=== PATIENT | female | born 1960 | race Caucasian/White ===

== ENCOUNTER 2023-06-23 12:32 | Emergency (ER) | payer MEDICARE, SELFPAY ==
[2023-06-23 12:38] VITALS: BP 145/90; PULSE 103; RESP 16; TEMP 36.6; O2SAT 99; BMI 21.8
[2023-06-23 12:58] LABS: Basophils Percent Auto 0.3 % (0.2-2.0); Eosinophils Percent Auto 0.4 % (0.9-7.0); Hemoglobin 16.8 g/dL (12.0-16.0); Immature Granulocytes Abs Auto 0.04 10^3/uL (0.00-0.03); Immature Granulocytes Pct Auto 0.4 % (0.0-0.5); Lymphocytes Absolute Auto 2.2 10^3/uL (1.2-3.8); Lymphocytes Percent Auto 22.1 % (20.5-60.0); Mean Corpuscular HGB Conc 34.3 g/dL (29.9-35.2); Mean Corpuscular Volume 78.7 fL (81.0-99.0); Mean Platelet Volume 10.9 fL (9.5-13.5); Monocytes Absolute Auto 0.9 10^3/uL (0.3-0.8); Monocytes Percent Auto 9.4 % (1.7-12.0); Neutrophils Absolute Auto 6.7 10^3/uL (1.4-6.5); Neutrophils Percent Auto 67.4 % (43.0-75.0); Platelet Count 386 10^3/uL (150-450); Red Blood Count 6.23 10^6/uL (4.20-5.40); Red Cell Distribution Width 13.2 % (11.0-15.0)
[2023-06-23] MEDS: 0.9 % SODIUM CHLORIDE 1,000 ML 999 ML IV (12:59)
[2023-06-23] MEDS: ONDANSETRON PF 4 MG/2 ML VIAL IV (13:00)
--- NOTE | 2023-06-23 13:04 | XR_ITS ---
The [address] [address] Patient Name: BERTA CRUZ MRN: [id number] date: 1960 Sex: F Assigned Patient Location: ER Current Patient Location: ER Accession/Order Number: [id number] Exam Date: 06/23/2023 13:18 Report Date: 06/23/2023 14:04 At the request of: STACY URENA Procedure: XR acute abdomen series EXAM: XR acute abdomen series INDICATION: Protracted vomiting status post fundoplication. COMPARISON: None. TECHNIQUE: Frontal view of the chest. Upright and supine views of the abdomen. FINDINGS: Chest: Normal cardiomediastinal contours. Clear lungs. No pleural effusion or pneumothorax. Abdomen: Nonobstructive bowel gas pattern. No pneumatosis or no evidence of free intra-abdominal air. No suspicious calcifications. Unremarkable visceral margins. Right upper quadrant cholecystectomy clips. Other: None. XR/XR acute abdomen series IMPRESSION: No evidence of acute process in the chest or abdomen. Electronically authenticated by: NAVI MURRY Date: 06/23/2023 14:04
[2023-06-23 13:24] LABS: Alanine Aminotransferase 19 U/L (14-59); Albumin Globulin Ratio 1.3; Albumin Level 4.4 g/dL (3.4-5.0); Alkaline Phosphatase 68 U/L (46-116); Aspartate Amino Transferase 13 U/L (15-37); BUN Creatinine Ratio 20.4; Calcium 9.9 mg/dL (8.5-10.1); Carbon Dioxide 26.8 mmol/L (21.0-32.0); Chloride 98 mmol/L (98-107); Estimated GFR (African America >60 (>=60); Estimated GFR (Non-African Ame 54 (>=60); Globulin 3.3 g/dL; Glucose 136 mg/dL (74-106); Sodium 138 mmol/L (136-145); Total Protein 7.7 g/dL (6.4-8.2)
[2023-06-23 13:27] LABS: Potassium 2.8 mmol/L (3.5-5.1)
[2023-06-23 13:28] LABS: Lactate/Lactic Acid 2.1 mmol/L (0.4-2.0)
[2023-06-23] MEDS: POTASSIUM CHLORIDE 10 MEQ ER TABLET 20 MEQ PO (13:42)
[2023-06-23 15:00] VITALS: BP 139/87; PULSE 78; RESP 18; O2SAT 99
--- NOTE | 2023-06-23 15:00 | ED_ITS ---
HPI - Nausea/Vomiting/Diarrhea General Chief complaint: Nausea/Vomiting/Diarrhea Stated complaint: vomiting Time Seen by Provider: 06/23/23 12:48 Source: patient Mode of arrival: walk-in Limitations: no limitations History of Present Illness HPI Narrative: This patient is here complaining of nausea for the last several days. She describes having a surgery, probable fundoplication, and normally is not able to vomit. 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 One of the days this week on Saturday I believe she had a small amount of loose stool but no copious diarrhea. She had a previous cholecystectomy and the fundoplication. She is also had a hysterectomy and section. She has not run a fever. She has not had terrible aches and pains or viral influenza type symptoms. No other family members are ill with nausea or vomiting or diarrhea. She has not been on any recent antibiotics. Her surgeon is in [facility] and she sees him from time to time as needed. She does not have any back pain shortness of breath. Does not have swelling of her legs. Does not have a headache. Related Data Home Medications Medication Instructions Recorded Confirmed amitriptyline 25 mg tablet 25 mg PO DAILY 06/23/23 06/23/23 pantoprazole 40 mg tablet,delayed 40 mg PO DAILY 06/23/23 06/23/23 release promethazine 12.5 mg tablet 12.5 mg PO Q6H PRN nausea and 06/23/23 06/23/23 vomiting rosuvastatin 40 mg tablet (Crestor) 40 mg PO DAILY 06/23/23 06/23/23 Allergies Allergy/AdvReac Type Severity Reaction Status Date / Time codeine Allergy Mild Vomiting Verified 06/23/23 12:42 lisinopril AdvReac Mild Cough Verified 06/23/23 12:42 Penicillins AdvReac Mild Verified 06/23/23 12:42 PFSH PFSH Social History Smoking status: Former smoker Exam Narrative Exam Narrative: Pleasant but highly anxious. Vital signs are noted. Her skin is warm and dry she is not clammy or diaphoretic. There is no cyanosis. HEENT shows no conjunctivitis no airway problems voice swallowing deglutition are all normal. Her lungs are clear with no wheeze rales or rhonchi there is no cough or congestion. Heart sounds are normal. She has no sternotomy incision. Examination abdomen multiple incisions are noted and she has very active bowel sounds in all 4 quadrants. They are not high-pitched or tinkling or obstructive in nature. Examination palpation shows no tenderness guarding rebound or rigidity. No organomegaly. Extremities show no swelling edema or phlebitis Constitutional Vital Signs, click to edit/add: Last Vital Signs Temp 97.9 F 06/23/23 12:38 Pulse 103 H 06/23/23 12:38 Resp 16 06/23/23 12:38 BP 145/90 H 06/23/23 12:38 Pulse Ox 99 06/23/23 12:38 O2 Del Method Room Air 06/23/23 12:38 Course Vital Signs Vital signs: Vital Signs Temperature 97.9 F 06/23/23 12:38 Pulse Rate 103 H 06/23/23 12:38 Respiratory Rate 16 06/23/23 12:38 Blood Pressure 145/90 H 06/23/23 12:38 Pulse Oximetry 99 06/23/23 12:38 Oxygen Delivery Method Room Air 06/23/23 12:38 Temperature 97.9 F 06/23/23 12:38 Pulse Rate 103 H 06/23/23 12:38 Respiratory Rate 16 06/23/23 12:38 Blood Pressure 145/90 H 06/23/23 12:38 Pulse Oximetry 99 06/23/23 12:38 Oxygen Delivery Method Room Air 06/23/23 12:38 MDM - Nausea/Vomiting/Diarrhea MDM Narrative Medical decision making narrative: Based on her history of not eating much this week we did establish an IV and she was given intravenous Zofran. She felt substantially improved with the Zofran. Her laboratory testing shows borderline elevation of her bilirubin at 2.0 otherwise her liver function tests are normal. Lactate level is minimally elevated at 2.1 consistent with some volume depletion and her potassium was low at 2.8. She does feel better and I did not feel it was necessary to do a CT evaluation of her abdomen as her routine abdominal series did not suggest any bowel obstruction or blockage or abnormal gas pattern nor did her clinical exam suggest a surgical problem. Nonetheless with her past surgical history she should be in contact with her physicians for further evaluation if this does not resolve. This was all explained in detail including the laboratory test. Lab Data Labs: Lab Results 06/23/23 Range/Units 12:48 WBC 10.0 (4.0-11.0) 10^3/uL RBC 6.23 H (4.20-5.40) 10^6/uL Hgb 16.8 H (12.0-16.0) g/dL Hct 49.0 H (36.0-48.0) % MCV 78.7 L (81.0-99.0) fL MCH 27.0 (26.7-34.0) pg MCHC 34.3 (29.9-35.2) g/dL RDW 13.2 (11.0-15.0) % Plt Count 386 (150-450) 10^3/uL MPV 10.9 (9.5-13.5) fL Neut % (Auto) 67.4 (43.0-75.0) % Lymph % (Auto) 22.1 (20.5-60.0) % Barber % (Auto) 9.4 (1.7-12.0) % Eos % (Auto) 0.4 L (0.9-7.0) % Baso % (Auto) 0.3 (0.2-2.0) % Neut # (Auto) 6.7 H (1.4-6.5) 10^3/uL Lymph # (Auto) 2.2 (1.2-3.8) 10^3/uL Barber # (Auto) 0.9 H (0.3-0.8) 10^3/uL Eos # (Auto) 0.0 (0.0-0.7) 10^3/uL Baso # (Auto) 0.0 (0.0-0.1) 10^3/uL Abs Immat Gran (auto) 0.04 H (0.00-0.03) 10^3/uL Imm/Tot Granulo (auto) 0.4 (0.0-0.5) % Sodium 138 (136-145) mmol/L Potassium 2.8 L* (3.5-5.1) mmol/L Chloride 98 (98-107) mmol/L Carbon Dioxide 26.8 (21.0-32.0) mmol/L Anion Gap 16.0 BUN 21.0 H (7.0-18.0) mg/dL Creatinine 1.03 H (0.55-1.02) mg/dL Est GFR ( Amer) >60 (>=60) Est GFR (Non-Af Amer) 54 L (>=60) BUN/Creatinine Ratio 20.4 Glucose 136 H (74-106) mg/dL Lactate 2.1 H (0.4-2.0) mmol/L Calcium 9.9 (8.5-10.1) mg/dL Total Bilirubin 2.0 H (0.2-1.0) mg/dL AST 13 L (15-37) U/L ALT 19 (14-59) U/L Alkaline Phosphatase 68 (46-116) U/L Total Protein 7.7 (6.4-8.2) g/dL Albumin 4.4 (3.4-5.0) g/dL Globulin 3.3 g/dL Albumin/Globulin Ratio 1.3 Lipase 37.0 (16.0-77.0) U/L Discharge Plan Discharge Chief Complaint: Nausea/Vomiting/Diarrhea Clinical Impression: Nausea Patient Disposition: Home, Self-Care Time of Disposition Decision: 15:04 Prescriptions / Home Meds: No Action pantoprazole 40 mg tablet,delayed release (DR/EC) 40 mg PO DAILY promethazine 12.5 mg tablet 12.5 mg PO Q6H PRN (Reason: nausea and vomiting) amitriptyline 25 mg tablet 25 mg PO DAILY rosuvastatin [Crestor] 40 mg tablet 40 mg PO DAILY Additional Instructions: Clear fluids and very small but frequent sips. Zofran as needed. Follow-up with either your primary care doctor or your surgeon. Further testing may be necessary if you do not have complete resolution of the symptoms. Take a copy o f your laboratory test. Referrals: Physician,Non-Staff, MD [Primary Care Provider] - 1 week Stand Alone Forms: Portal Instructions
== END 2023-06-23 15:23 | disposition home or self-care (01) ==
PROVIDERS: Emergency Provider Emergency Medicine Emergency Medical Services
DX: R11.0 Nausea (principal); Z79.899 Other long term (current) drug therapy; Z87.891 Personal history of nicotine dependence
CPT/HCPCS: 36415; 74022; 80053; 83605; 83690; 85025; 96374; 99285